=== PATIENT | male | born 1945 | race Caucasian/White ===

== ENCOUNTER 2019-06-11 11:08 | Outpatient (CLI) | payer MEDICARE, BC, SELFPAY ==
--- NOTE | 2019-06-11 06:00 | DI.RAD_ITS ---
EXAM: XR PAIN CLINIC LUMBAR SP 2V CLINICAL HISTORY: caudal epidural steroid injection, lumbar radiculopathy COMPARISON: No exams were available for comparison FINDINGS: Fluoro time: 63.2 sec, 39.3 mGy C-arm fluoroscopy was utilized by Dr. Aguila during reported epidural steroid injection. Hard copy shawn ws epidural injection at the level of approximately the 3rd to 4th sacral segment.
[2019-06-11 11:13] VITALS: BP 120/77; PULSE 63; RESP 18; TEMP 36.7; O2SAT 96
--- NOTE | 2019-06-11 12:34 | PDOC.PAIN ---
Pain Clinic Procedure Note Procedure Note Procedure Note: CAUDAL EPIDURAL STEROID WITH CATHETER INJECTION PROCEDURE NOTE COMMENTS: He has had this procedure in the past with good results SADA JONES has been referred to the [facility] for lumbar epidural steroid injection. Patient was greeted by the nurse who verified patients name and . Patient was then taken to the fluoroscopy suite. Patient was interviewed and the medical record reviewed. There were no medical, pharmacologic, radiographic, or other structural contraindications to attempting fluoroscopically guided lumbar epidural steroid injection. Risks and expected side effects as well as potential benefits of the procedure were reviewed and voiced concerns addressed. The patient consent form was signed and witnessed. Standard time-out procedure was performed. Patient was placed in the prone position on the fluoroscopy table and automated blood pressure cuff and pulse oximeter applied. The skin entry point for entering/approaching the epidural space at the sacral hiatus and marked. Following thorough chlorhexadine preparation of the skin and draping and 1% lidocaine infiltration of the skin entry point and subcutaneous tissues, a 17 gauge Touhy needle was placed under fluoroscopic guidance and with loss of resistance technique into the epidural space. Needle tip placement and depth were aided and confirmed by fluoroscopy. There was no paresthesia or return of blood or CSF through the needle. An Arrow cath was thread to the L5-S1 interspace and 1 cc's of Omnipaque 240 was injected with clear epidural spread confirmed with fluoroscopy. 80mg depomedrol was injected. There was not any unusual discomfort expressed. Vital signs were stable throughout the procedure and were as recorded in nursing records. Follow up plans and appointments were discussed.Post procedure instruction was given as documented in nursing records and having met discharge criteria and was discharged from the [facility]. COMMENTS: This procedure can be completed up to 3 times per 12 months if it is found to be helpful.
[2019-06-11] MEDS: Omnipaque 240 MG/ML 50 ML BTL IJ (12:46)
[2019-06-11 12:47] VITALS: BP 168/84; PULSE 63; RESP 20; O2SAT 97
[2019-06-11] MEDS: methylPREDNISolone ACETATE 80 MG/ML VIAL IM (12:47)
== END 2019-06-11 11:28 ==
PROVIDERS: PCP Internal Medicine; Visit Provider Preventive Medicine Occupational Medicine
DX: M54.17 Radiculopathy, lumbosacral region (principal)
CPT/HCPCS: 62323; 72100; J1040; Q9967

== ENCOUNTER 2020-01-06 09:12 | Outpatient (CLI) | payer MEDICARE, BC, SELFPAY ==
[2020-01-06 10:11] LABS: CREATININE 1.28 mg/dL (0.70-1.30); Estimated GFR 55.09 (mL/min/1.73m2)
== END 2020-01-06 09:32 ==
PROVIDERS: PCP Internal Medicine; Visit Provider Nurse Practitioner Family
DX: M96.1 Postlaminectomy syndrome, not elsewhere classified (principal); Z13.89 Encounter for screening for other disorder
CPT/HCPCS: 36415; 82565

== ENCOUNTER 2020-01-09 01:05 | Outpatient (CLI) | payer MEDICARE, BC, SELFPAY ==
--- NOTE | 2020-01-09 | DI.MRI_ITS ---
EXAM: MR LUMBAR SPINE WO/W CLINICAL HISTORY: SPINAL STENOSIS WITH NEUROGENIC CLAUDICATION, H/O. TECHNIQUE: Multiplanar multisequence MRI was performed. COMPARISON: MR MR LS SPINE W/WO CONTRAST from 05/15/2017 FINDINGS: MR examination lumbosacral spine was performed according to the usual protocol. Additional pre and p ost contrast T1 fat sat images were obtained. There are Lesley discal vertebral signal changes at L5-S1 consistent with disc degeneration. No other significant bony signal abnormality seen. Conus medullaris appears intact. There are mild to modera te hypertrophic changes seen involving the facet joints L4-5 L5-S1. There is metallic artifact posteriorly at the L 4 vertebral level which presumably represents a prior laminectomy mild deformity of the lamina noted at this level particularly on the left. There is no evidence of a central canal spinal stenosis at this time. No focal disc herniation seen , mild disc bulges noted at L 2 3 L3-4 and L4-5. Neural foramina appear well maintained except for m ild narrowing of neural foramina on the right at L4-5 and L5-S1. No enhancing lesion identified on postcontrast imaging. IMPRESSION: No evidence of spinal stenosis at this time. No disc herniation. Mild neural foraminal narrowing no melonie on the right at L4-5 and L5-S1. No gross interval change allowing for differences in technique c omparison with outside examination of 05/15/2017. DATA REPOSITORY:
[2020-01-09] MEDS: Normal Saline Flush 10 ML SYR IVP (14:18)
[2020-01-09] MEDS: Gadoterate meglumine 20 ML VIAL IVP (14:19)
== END 2020-01-09 01:25 ==
PROVIDERS: PCP Internal Medicine; Visit Provider Nurse Practitioner Family
DX: M48.07 Spinal stenosis, lumbosacral region (principal); M51.37 Other intervertebral disc degeneration, lumbosacral region
CPT/HCPCS: 72158

== ENCOUNTER 2020-01-30 10:13 | Outpatient (CLI) | payer MEDICARE, BC, SELFPAY ==
--- NOTE | 2020-01-30 06:00 | DI.RAD_ITS ---
EXAM: XR PAIN CLINIC LUMBAR SP 2V CLINICAL HISTORY: Dx: Lumbar Radiculopathy TECHNIQUE: 2D and realtime digital imaging was performed. Fluoroscopy was provided in the OR COMPARISON: No exams were available for comparison FINDINGS: C-arm fluoroscopy was utilized by Dr. Aguila during reported trans foraminal steroid injection. Hard c opy shows needle overlying the left L5-S1 neural foramen with injection this site. Fluoro time 23.4 seconds IMPRESSION: RADIATION DOSE DELIVERED: Total DLP
[2020-01-30 10:28] VITALS: BP 148/84; PULSE 65; RESP 18; TEMP 36.6; O2SAT 97
[2020-01-30 11:17] VITALS: BP 161/91; PULSE 67; RESP 14; O2SAT 98
[2020-01-30] MEDS: Dexamethasone Sod. Phos./Pres-Free 10 MG/ML VIAL IJ (11:17)
[2020-01-30] MEDS: Omnipaque 240 MG/ML 50 ML BTL IJ (11:17)
--- NOTE | 2020-02-13 10:41 | PDOC.PAIN_ITS ---
Pain Clinic Procedure Note Procedure Note Procedure Note: LUMBAR / SACRAL TRANSFORAMINAL INJECTION at the left L5 SADA JONES has been referred to the [facility] for a transforaminal nerve root block and steroid injection. COMMENTS: Pain in the left L5 distribution. Previously evaluated in the clinic. I did re-review his most recent lumbar spine MRI. DX: Lumbosacral radiculopathy Patient was interviewed and the medical record reviewed. There were no medical, pharmacologic, radiographic or other structural contraindications to attempting fluoroscopically guided transforaminal nerve root block and epidural steroid injection. Risks and expected side effects as well as potential benefit of the procedure were reviewed and voiced concerns addressed. The printed consent form was signed and witnessed. Standard time-out procedure was performed. Patient was placed in the prone position on the fluoroscopy table and automated blood pressure cuff and pulse oximeter applied. Fluoroscopy was utilized to identify the left L5 neural foramen between L5 and S1. A skin amalia was made for the needle insertion site. A Chlorhexadine prep was carried out, and sterile drapes were applied. Local anesthesia was achieved in the skin and subcutaneous tissues. A 22 gauge curved tip spinal needle was then inserted, advanced with fluoroscopic guidance into the neural foramen, confirmed on the lateral view. After negative aspiration, 2 ml of Omnipaque 240 was injected confirming position in A/P and lateral views. This showed a good spread of dye transforaminally into the epidural space. There was no vascular update with contrast injection under continuous fluoroscopy and digital substraction. 15 mg of Dexamethasone was injected, followed by 0.5 ml of 1% Xylocaine flush for the nerve root block, as well. There was no unusual discomfort expressed.The needle was withdrawn. The patient tolerated the procedure well. A Band-Aid was applied. Vital signs were stable throughout the procedure and were as recorded in nursing records. If given, dosages of intravenous drugs for anxiolysis and analgesia were documented in nursing records. Follow up plans and appointments were discussed. 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 COMMENTS:Great pain relief after the procedure. He can has this procedure up to 3 times every 12 months if it is found to be effective. CC: Monique Xiao
== END 2020-01-30 10:33 ==
PROVIDERS: PCP Internal Medicine; Visit Provider Preventive Medicine Occupational Medicine
DX: M54.17 Radiculopathy, lumbosacral region (principal)
CPT/HCPCS: 64483; 72100; Q9967

== ENCOUNTER 2020-02-19 09:43 | Outpatient (REF) | payer MEDICARE, BC, SELFPAY ==
[2020-02-22 05:48] LABS: 2-Hydroxy Ethyl Flurazepam Not Detected ng/mL (Cutoff: 10); 6-monoacetylmorphine Not Detected ng/mL (Cutoff: 25); Alpha-Hydroxy Midazolam Not Detected ng/mL (Cutoff: 10); Alpha-Hydroxy Triazolam Not Detected ng/mL (Cutoff: 10); Alpha-Hydroxyalprazolam Not Detected ng/mL (Cutoff: 10); Alpha-OH-alprazolam Glucuronid Not Detected ng/mL (Cutoff: 50); Alprazolam Not Detected ng/mL (Cutoff: 10); Amphetamines Negative ng/mL (Cutoff: 500); Barbiturates Negative ng/mL (Cutoff: 200); Buprenorphine Not Detected ng/mL (Cutoff: 5); Chlordiazepoxide Not Detected ng/mL (Cutoff: 10); Clobazam Not Detected ng/mL (Cutoff: 10); Clonazepam Not Detected ng/mL (Cutoff: 10); Cocaine Negative ng/mL (Cutoff: 150); Codeine Not Detected ng/mL (Cutoff: 25); Comment Normal; Creatinine, U 338.6 mg/dL; Diazepam Not Detected ng/mL (Cutoff: 10); Dihydrocodeine Not Detected ng/mL (Cutoff: 25); EDDP Not Detected ng/mL (Cutoff: 25); Fentanyl Not Detected ng/mL (Cutoff: 2); Flurazepam Not Detected ng/mL (Cutoff: 10); Hydrocodone Not Detected ng/mL (Cutoff: 25); Hydromorphone Not Detected ng/mL (Cutoff: 25); Hydromorphone-3-beta-glucuroni Not Detected ng/mL (Cutoff: 100); Lorazepam Not Detected ng/mL (Cutoff: 10); Lorazepam Glucuronide Not Detected ng/mL (Cutoff: 50); Meperidine Not Detected ng/mL (Cutoff: 25); Methadone Not Detected ng/mL (Cutoff: 25); Midazolam Not Detected ng/mL (Cutoff: 10); Morphine Not Detected ng/mL (Cutoff: 25); N-Desmethylclobazam Not Detected ng/mL (Cutoff: 200); N-desmethyltapentadol Not Detected ng/mL (Cutoff: 50); Naloxone Not Detected ng/mL (Cutoff: 25); Norfentanyl Not Detected ng/mL (Cutoff: 2); Norhydrocodone Not Detected ng/mL (Cutoff: 25); Normeperidine Not Detected ng/mL (Cutoff: 25); Noroxycodone Not Detected ng/mL (Cutoff: 25); Noroxymorphone Not Detected ng/mL (Cutoff: 25); O-desmethyltramadol Not Detected ng/mL (Cutoff: 25); Oxazepam Glucuronide Not Detected ng/mL (Cutoff: 50); Phencyclidine Negative ng/mL (Cutoff: 25); Prazepam Not Detected ng/mL (Cutoff: 10); Propoxyphene Not Detected ng/mL (Cutoff: 25); Tapentadol Not Detected ng/mL (Cutoff: 25); Temazepam Not Detected ng/mL (Cutoff: 10); Temazepam Glucuronide Not Detected ng/mL (Cutoff: 50); Tetrahydrocannabinol Negative ng/mL (Cutoff: 50); Tramadol Not Detected ng/mL (Cutoff: 25); Triazolam Not Detected ng/mL (Cutoff: 10); Zolpidem Phenyl-4-Carboxy acid Not Detected ng/mL (Cutoff: 10); pH 5.6
== END 2020-02-19 10:03 ==
LOC: LBN 09:43
PROVIDERS: PCP Internal Medicine; Visit Provider Nurse Practitioner Family
DX: M96.1 Postlaminectomy syndrome, not elsewhere classified (principal); Z79.899 Other long term (current) drug therapy
CPT/HCPCS: 80307; 80347; 80364

== ENCOUNTER 2021-01-04 01:38 | Outpatient (CLI) | payer MEDICARE, BC, SELFPAY ==
[2021-01-04] MEDS: Normal Saline Flush 10 ML SYR IVP (10:08)
[2021-01-04] MEDS: Gadoterate meglumine 20 ML VIAL IVP (10:09)
--- NOTE | 2021-01-04 11:00 | DI.MRI_ITS ---
Exam(s) MR LUMBAR SPINE WO/W EXAM: MR LUMBAR SPINE WO/W CLINICAL HISTORY: L4-5 DECOMPRESSION 10/2020,NEW RADICULAR PAIN AND WEAKNESS. TECHNIQUE: Multiplanar multisequence MRI of the Lumbar spine was performed. Both pre and post contra st infused sequences were performed. IV contrast was 20 mL Dotarem. COMPARISON: MR MR LS SPINE W/WO CONTRAST from 05/15/2017 MR MR LUMBAR SPINE WO/W from 01/09/2020 MR MR LUMBAR SPINE WO/W from 01/09/2020 There are no plain films available time this MRI interpretation. FINDINGS: Five lumbar vertebrae are presumed exam somewhat difficult to interpret other SPECT the proper level 9 number as there appears to be transitional anatomy here and there are no plain films available. Ex am will be labeled to correspond to the exam dictation of December 2019. Conus medullaris is at normal level. There is no evidence of conus mass nor subjacent clumping of in trathecal nerve roots to suggest arachnoiditis. The distal thecal sac appears unremarkable.There is no evidence of Tarlov intrasacral cysts nor other significant findings within the sacral canal. PARASPINAL SOFT TISSUES: No significant asymmetry of the psoas muscles nor paraspinal abscess evident . No evidence of abnormal epidural fluid collection. There is enhancement along the surgical occult tract posteriorly but no abnormal fluid collection. Also enhancement symmetrically associated with the posterior musculature along the surgical route. There is some enhancement at the level of adjace nt Schmorl's nodes in the inferior endplate of L3 and superior endplate of L4. Bones:There are no fractures nor ominous osseous lesions in the lumbar vertebral bodies and visualize d sacrum. Increase intraosseous signal and enhancement at the adjacent Schmorl's node invagination i s sys inferior endplate of L3 L2 and L3 and superior endplate of L4. However, there is no prominent surrounding bone edema. With respect to the individual levels... T12-L1: Unremarkable L1-2: Small benign intraosseous hemangioma noted in the posterior aspect L1, unchanged. There is mil d annular bulging, more so on the left than right but no prominent disc herniation. Central canal di mensions are lower normal. No significant foraminal stenosis evident at this level. Mild facet dege nerative changes. L2-3: Chronic decreased disc height. There is annular bulging which is more prominent on the right s panfilo and extends into the floor of the exiting right neural foramen. There is, however, only minimal foraminal stenosis. There is no significant annular protrusion into the exiting left neural foramen. Central canal dimensions are lower normal. No prominent facet arthropathy. L3-4: This level exhibits further disc height loss when compared to the CT scan of December 2019. Also Renan morl's node invagination is a both sides of this disc space are again noted.There is broad annular bu lging at this level noted but central canal dimensions are lower normal. The annular bulging extends into the exiting neural foramina bilaterally at this level and there is moderate bilateral foraminal stenosis at this level evident. This has increased when compared to the December 2019 study and is mostl y related to increasing height loss of the disc as well as degenerative changes in the facet joints. L4-5: Mild decreased disc height and signal. There is broad annular bulging without a dominant disc protrusion. Broad annular bulging extends into the exiting neural foramina but there is only foramin al stenosis on the right side at this level which is mostly related to degenerative change in the rig ht facet joint. No obvious foraminal stenosis on the opposite-left side evident at this level. L5-S1: If level exhibits chronic disc space narrowing is unchanged from December 2019. There is broad mayte lar bulging at this level. Central canal dimensions are lower normal. There is narrowing of the exi ting right neural foramen, more so than on the left side where there is only mild foraminal stenosis. The difference there is related to the annulus, disc height loss, and degenerative change in the ri ght facet joint. EPIDURAL ABSCESS: There is no evidence of epidural nor paraspinal abscess. Soft tissues: paraspinal soft tissues appear unremarkable. IMPRESSION: 1. Since the prior see MRI scan of December 2011 there has been interval partial laminectomy surgery. Th ere are mild multilevel findings as described individually above but there is no evidence of tight sp inal canal stenosis. There is some asymmetric foraminal stenosis as described above. 2. There is enhancement in the soft tissues along these surgical tract but no evidence of paraspinal or epidural abscess. 3. There is some enhancement seen within Schmorl's node invagination is at the mid lumbar level. How ever, there does not appear to be evidence to suggest osteomyelitis DATA REPOSITORY:
== END 2021-01-04 01:58 ==
PROVIDERS: PCP Internal Medicine; Visit Provider Internal Medicine
DX: M54.16 Radiculopathy, lumbar region (principal); D18.09 Hemangioma of other sites; Z98.890 Other specified postprocedural states
CPT/HCPCS: 72158

== ENCOUNTER 2021-10-04 10:09 | Outpatient (CLI) | payer MEDICARE, BC, SELFPAY ==
--- NOTE | 2021-10-04 09:36 | DI.RAD_ITS ---
Exam(s) XR HIP PELVIS ADULT BL EXAM: XR HIP PELVIS ADULT BL CLINICAL HISTORY: hip pain. TECHNIQUE: 2D digital imaging was performed. COMPARISON: No exams were available for comparison FINDINGS: No pelvic fractures or osseous lesions evident. Vascular calcification in the right femoral artery i s noted. Wire-like densities are projected over both sides of the symphysis pubis. I suspect this i s from prior bladder suspension surgery. There are only mild degenerative changes in the hips. SI j oints appear unremarkable. IMPRESSION: DATA REPOSITORY: RADIATION DOSE DELIVERED:
== END 2021-10-04 10:10 | disposition home or self-care (01) ==
LOC: DIORS 10:09
PROVIDERS: PCP Internal Medicine; Referring Provider Internal Medicine; Visit Provider Student in an Organized Health Care Education/Training Program
DX: M16.12 Unilateral primary osteoarthritis, left hip (principal); M16.11 Unilateral primary osteoarthritis, right hip
CPT/HCPCS: 73521; 99214

== ENCOUNTER 2021-10-28 03:14 | Outpatient (CLI) | payer MEDICARE, BC, SELFPAY ==
--- NOTE | 2021-10-28 08:00 | DI.RAD_ITS ---
Exam(s) RF JOINT INJECTION FLUORO GUID EXAM: RF JOINT INJECTION FLUORO GUID CLINICAL HISTORY: R HIP INJ UNDER FLUORO,rt hip pain,m25.551,fluoro assisted injection. TECHNIQUE: Fluoroscopy was provided for the referring physician for guidance with performing injecti on procedure. COMPARISON: No exams were available for comparison FINDINGS: Single hard copy image shows a needle projecting at the margin of the right femoral neck and small am ount of contrast within the right hip joint please see procedure note for details. Fluoro time: 6 seconds RADIATION DOSE DELIVERED: ghulam Johnson=1.04 mGy
--- NOTE | 2021-10-28 08:00 | DI.RAD_ITS ---
Exam(s) RF JOINT INJECTION FLUORO GUID EXAM: RF JOINT INJECTION FLUORO GUID CLINICAL HISTORY: lt hip pain, m25.552, fluoro assisted injection. TECHNIQUE: Fluoroscopy was provided for the referring physician for guidance with performing injecti on procedure. COMPARISON: No exams were available for comparison FINDINGS: A single hard copy image shows a small amount of chronic contrast injected into the left hip joint. Please see procedure note for details. Fluoro time: 6.04 seconds RADIATION DOSE DELIVERED: ghulam Johnson=0.76 mGy
--- NOTE | 2021-10-28 14:33 | W.PROCNOTE ---
Procedure Note Date of procedure: 10/28/21 Procedure: Bilateral Hip Injection with Fluoroscopic Guidance Surgeon/Proceduralist/Physician: Ludin Law Procedure Diagnosis: Bilateral Hip Pain Procedure Indications: Rashawn has had persistent pain of the BILATERAL hip and groin and low back. Noninvasive measures have been tried. To serve as both diagnostic and therapeutic, an injection under fluoroscopy was recommended. I had discussed the risks of the procedure and the patient elected to proceed. Procedure Description: Rashawn was greeted in the flouroscopy room. The consent was reviewed with the patient and signed. The patient was then placed in the supine position on the fluoroscopy table. The RIGHT hip was then prepped with Chloraprep. The anterolateral injection starting point was identiifed by bony landmarks and fluoroscopy. The skin and soft tissue in the tract of the injection was anesthetized with 1% Lidocaine. A spinal needle was then inserted deep into the hip joint at the level of the lateral femoral neck under fluoroscopic guidance. A small amount of Omnipaque solution was injected to confirm intraarticular placement. Once confirmed, the hip was injected with 5cc of 0.5% Bupivicaine and 80mg of Depo-Medrol. A bandaid was placed on the injection site. The LEFT hip was then prepped with Chloraprep. The anterolateral injection starting point was identiifed by bony landmarks and fluoroscopy. The skin and soft tissue in the tract of the injection was anesthetized with 1% Lidocaine. A spinal needle was then inserted deep into the hip joint at the level of the lateral femoral neck under fluoroscopic guidance. A small amount of Omnipaque solution was injected to confirm intraarticular placement. Once confirmed, the hip was injected with 5cc of 0.5% Bupivicaine and 80mg of Depo-Medrol. A bandaid was placed on the injection site. The patient tolerated the procedure well.
[2021-10-28] MEDS: Omnipaque 300 MG/ML 10 ML BTL IJ ×2 (14:58→15:02)
[2021-10-28] MEDS: methylPREDNISolone ACETATE 80 MG/ML VIAL IM ×2 (14:59→15:02)
[2021-10-28] MEDS: Bupivacaine 0.5% Pres-Free 10 ML VIAL 5 ML IJ (15:00)
== END 2021-10-28 03:34 ==
PROVIDERS: PCP Internal Medicine; Visit Provider Student in an Organized Health Care Education/Training Program
DX: M25.552 Pain in left hip (principal); M25.551 Pain in right hip
CPT/HCPCS: 20610; 77002; J1040

== ENCOUNTER 2022-05-04 12:02 | Outpatient (CLI) | payer MEDICARE, BC, SELFPAY ==
[2022-05-04 12:17] VITALS: BP 133/85; PULSE 61; RESP 22; TEMP 36.7; O2SAT 97
[2022-05-04 13:09] VITALS: PULSE 78; RESP 18; O2SAT 98
[2022-05-04] MEDS: methylPREDNISolone ACETATE 40 MG/ML VIAL IJ (13:25)
[2022-05-04] MEDS: Lidocaine 2% Multi-Dose 20 ML VIAL IJ (13:25)
--- NOTE | 2022-05-19 13:41 | PDOC.PAIN ---
Pain Clinic Procedure Note Procedure Note Procedure Note: ULTRASOUND GUIDED BILATERAL ILIOPSOAS TENDON NEEDLING Pre-Procedural Evaluation: Rashawn Fairbanks has been referred to the [facility] for an Ultrasound Guided bilateral bilateral iliopsoas needling injection for a chief complaint of bilateral lateral hip pain. Comments: He was previously seen in the office. Pre-procedure Pain Score: 8/10 Dx: Bilateral Iliopsoas tendinopathy Patient was interviewed and the medical record reviewed. There were no medical, pharmacologic, radiographic, or other structural contraindications to preforming an ultrasound guided injection. Risks and expected side effects as well as potential benefits of the procedure were reviewed. The patient consent form was signed and witnessed. Standard time-out procedure was performed. The use of direct ultrasound visualization of the needle (rather than a non-guided injection) was required to increase patient safety by excluding inadvertent intramuscular, intratendinous, or intraneural needle placement and minimizing bleeding by avoiding osteochondral or vascular injury from the needle. Additionally, the increased accuracy of placement may increase clinical effectiveness and will allow higher diagnostic specificity when evaluating effectiveness of this injection. Procedure Description: The patient was placed in the supine position and automated blood pressure cuff and pulse oximeter applied for monitoring during the procedure and recorded in the medical record. Pre-injection ultrasound scanning of the area of interest was performed using a linear transducer, identifying relevant anatomy, landmarks, and neurovascular structures allowing for optimal needle path. The site was then prepared in the usual sterile fashion, using thorough Chlorhexadine preparation of the skin and sterile draping. The same ultrasound transducer was then passed into the sterile field using sterile probe cover and sterile ultrasound gel. The injection target was again visualized. Skin and subcutaneous tissues were anesthetized with NUMBERS mL of 1% Lidocaine. A 18G Pajunk 3.5 ultrasound needle inch needle was placed under live ultrasound guidance, using an in-plane to the target area. After visualization of the needle tip at the target area, I injected 5 cc of 2% Lidocaine after negative aspiration for blood. I then punctured the iliopsoas tendon 20 times with the needle under direction ultrasound visualization. Ultrasound images were captured and stored for documentation purposes. This procedure was completed on both sides. Post-procedure Pain Score:4/10 Vital signs were stable throughout the procedure and were as recorded in the docflowsheet by the nursing staff. Follow up plans and appointments were discussed with the patient.Post procedure instruction was given as documented in nursing documentation and having met discharge criteria, they were discharged from the [facility]. COMMENTS: He was instructed to walk or be weight bearing as little as possible for the nex 7-10 days and then start stretching as instructed. Kailash Aguila DO, MPH [facility]-Pain Management [facility] for [facility]
== END 2022-05-04 12:03 | disposition home or self-care (01) ==
LOC: PC 12:02
PROVIDERS: Visit Provider Preventive Medicine Occupational Medicine
DX: M67.853 Other specified disorders of tendon, right hip (principal); M67.854 Other specified disorders of tendon, left hip
CPT/HCPCS: 20611; J1030; J3490

== ENCOUNTER 2022-11-03 11:36 | Outpatient (CLI) | payer MEDICARE, BC, SELFPAY ==
--- NOTE | 2022-11-03 06:00 | DI.RAD_ITS ---
Exam(s) XR PAIN CLINIC LUMBAR SP 2V EXAM: XR PAIN CLINIC LUMBAR SP 2V CLINICAL HISTORY: Dx: Lumbar Spondylosis. TECHNIQUE: Fluoroscopy was provided for the referring physician for guidance with performing pain cl inic injection procedure. COMPARISON: No exams were available for comparison FINDINGS: Please see procedure note for details. Fluoro time: 52.2 seconds RADIATION DOSE DELIVERED: ghulam Johnson=17.69 mGy
[2022-11-03 11:48] VITALS: BP 131/78; PULSE 71; RESP 20; TEMP 36.8; O2SAT 98
[2022-11-03] MEDS: Bupivacaine 0.5% Pres-Free 10 ML VIAL IJ (12:39)
[2022-11-03 12:40] VITALS: BP 155/82; PULSE 89; RESP 15; O2SAT 99
[2022-11-03] MEDS: Omnipaque 240 MG/ML 50 ML BTL IJ (12:40)
--- NOTE | 2022-11-09 13:15 | PDOC.PAIN_ITS ---
Date of service: 11/03/22 Time of Service: 12:25 Pain Clinic Procedure Note Procedure Note Procedure Note: Lumbar/Sacral Medial Branch Blocks Rashawn Fairbanks has been referred to the [facility] for lumbar/sacral medial branch blocks. COMMENTS: He was previously evaluated in the office. Dx: Lumbosacral spondylosis without myelopathy pre-procedure pain VAS was 9/10 Patient was interviewed and the medical record reviewed. There were no medical, pharmacologic, radiographic or other structural contraindications to attempting fluoroscopically guided local anesthetic lumbar/sacral medial branch blocks. Risks and expected side effects as well as potential benefit of the procedure were reviewed and voiced concerns addressed. The printed consent form was signed and witnessed. Standard time-out procedure was performed. Patient was placed in the prone position on the fluoroscopy table and automated blood pressure cuff and pulse oximeter applied. The skin entry points for approaching the anatomic target points of the segmental medial branches of bilateral L3-L5 were identified with anfluoroscopy and marked. Following thorough Chlorhexadine preparation of the skin and draping and 1% lidocaine infiltration of the skin entry points and subcutaneous tissues, a 22 gauge spinal needle was placed under fluoroscopic guidance down on to the target point for each respective segmental medial branch.Position was confirmed in A/P, oblique and lateral views with 0.25ml of omnipaque 240. Coult be this method .5ml 0.5% Bupivacaine was injected or 1% Lidocaine. Vital signs were stable throughout the procedure and were as recorded in the docflowsheet by the nursing staff. Follow up plans and appointments were discussed and was instructed to keep careful note of how the usual pain was modified by these injections. Specifically was asked to keep a pain diary for the next 24 hours using a numeric pain scale of 0-10 and report these results at the follow-up visit. Post procedure instruction was given as documented in the nursing documentation and having met discharge criteria. Patient was discharged from the [facility] Management Center. Based on the medial branches blocked today, if the patient has adequate relief and we are able to proceed to radiofrequency ablation, the treatment should result in the denervation of the bilateral L4-L5 and L5-S1 FACET JOINTS. We would expect to denervate a total of 4 facets during the radiofrequency ablation. COMMENTS: Post-procedure pain VAS was 2/10. Kailash Aguila DO, MPH [facility]-Pain Management [facility]-Center for [facility] CC: Varun Vaz
== END 2022-11-03 11:37 | disposition home or self-care (01) ==
LOC: PC 11:37
PROVIDERS: PCP Neuromusculoskeletal Medicine & OMM; Visit Provider Preventive Medicine Occupational Medicine
DX: M47.817 Spondylosis without myelopathy or radiculopathy, lumbosacral region (principal); M54.50 Low back pain, unspecified
CPT/HCPCS: 64493; 64494; 72100; Q9967

== ENCOUNTER 2023-02-14 03:24 | Outpatient (CLI) | payer MEDICARE, BC, SELFPAY ==
[2023-02-14 09:11] LABS: ALT 34 U/L (16-63); AST 20 U/L (15-37); Albumin 3.4 g/dL (3.4-5.0); Alkaline Phosphatase 52 U/L (46-116); Anion Gap 9.4 mmol/L (3-11); BUN 20 mg/dL (7-18); Bilirubin, Total 0.6 mg/dL (0.2-1.0); CO2 24.6 mmol/L (21.0-32.0); CREATININE 1.2 mg/dL (0.70-1.30); Calcium 8.7 mg/dL (8.5-10.1); Chloride 109 mmol/L (98-107); Estimated GFR 62.67 (mL/min/1.73m2); Glucose 120 mg/dL (74-106); Potassium 3.9 mmol/L (3.5-5.1); Sodium 143 mmol/L (136-145); Total Protein 6.9 g/dL (6.4-8.2)
[2023-02-15 16:22] LABS: PSA, Ultrasensitive 0.11 ng/mL (<= 6.5)
[2023-02-18 14:55] LABS: Testosterone, Total <7.0 ng/dL (240-950)
== END 2023-02-14 03:25 | disposition home or self-care (01) ==
LOC: LBO 03:24
PROVIDERS: PCP Neuromusculoskeletal Medicine & OMM; Visit Provider Internal Medicine
DX: C61 Malignant neoplasm of prostate (principal)
CPT/HCPCS: 36415; 80053; 84153; 84403

== ENCOUNTER 2024-01-31 14:00 | Outpatient (CLI) | payer MEDICARE, BC, SELFPAY ==
[2024-01-31 14:10] VITALS: BP 158/85; PULSE 77; RESP 20; TEMP 36.7; O2SAT 96
[2024-01-31 14:52] VITALS: PULSE 82; RESP 16; O2SAT 95
[2024-01-31 15:00] VITALS: PULSE 78; RESP 13; O2SAT 97
[2024-01-31] MEDS: methylPREDNISolone ACETATE 80 MG/ML VIAL IJ (15:00)
[2024-01-31] MEDS: Omnipaque 240 MG/ML 50 ML BTL IJ (15:01)
[2024-01-31 15:02] VITALS: BP 149/90; PULSE 75; PULSE 76; RESP 16; O2SAT 96
[2024-01-31] MEDS: Epidural Tray 1 EACH MC (15:02)
--- NOTE | 2024-01-31 15:03 | PDOC.PAIN_ITS ---
Date of service: 01/31/24 Time of Service: 15:03 Pain Managment Procedure Note Procedure Note Procedure Note: PROCEDURE NOTE LUMBAR EPIDURAL STEROID INJECTION Date of Service: January 31, 2024 Patient:Rashawn Rose? Provider: Kailash Aguila DO, MPH Rashawn Fairbanks has been referred to the [facility] for a lumbar epidural steroid injection. Pre-operative diagnosis: Lumbosacral Radiculopathy Post-operative diagnosis: Same Pre-Procedure Pain: VAS= 9-10/10 when standing Comments: He was sent in for this procedure by his surgeon. He has lumbar spinal stenosis with claudication and we are trying to avoid an additional lumbar spine surgery. Rashawn was interviewed and the medical record was reviewed.? There were no medical, pharmacologic, radiographic or other structural contraindications to attempting fluoroscopically guided Lumbar epidural steroid injection.? Risks, potential side effects, indications, and potential benefits of the procedure were reviewed with Rashawn.? Questions and concerns were addressed.? After it was clear that Rashawn was fully informed about the procedure, the printed consent form was signed by the patient and myself.? Rashawn was placed in the prone position on the fluoroscopy table and automated blood pressure cuff and pulse oximeter applied. The skin entry point for entering/approaching the epidural space for the lumbar epidural steroid injection was marked. Following thorough chlorhexadine preparation of the skin and draping and 1% lidocaine infiltration of the skin entry point and subcutaneous tissues, an 18 gauge Touhy needle was placed and advanced under fluoroscopic guidance and with loss of resistance technique into the L2-L3 epidural space. Needle tip placement and depth were aided and confirmed by fluoroscopy. There was no paresthesia or return of blood or CSF through the needle. 1 mls of Omnipaque 240 was injected with clear epidural spread confirmed with fluoroscopy. 80 mg of Depo-Medrol was? injected. This was followed by 1 ml of preservative-free normal saline to flush the steroid out of the needle. There was no unusual discomfort expressed by Rashawn. The needle was withdrawn without difficulty. (49 mls of Omnipaque was wasted) Rashawn was observed and was without hemodynamic, neurologic, or allergic reactions.? Fluoroscopic images were digitally archived. Rashawn's vital signs were stable throughout the procedure and were as recorded in nursing records. Follow up plans and appointments were discussed with Rashawn. Post procedure instruction was given as documented in nursing records and having met discharge criteria Rashawn was discharged from the [facility]. COMMENTS: No apparent complications. Post-procedure pain: VAS= 3/10. Rashawn to contact [facility] as needed. If at least 50% improvement in pain and/or function for at least 3 months is achieved, this procedure can be repeated. I personally performed this entire procedure. KAILASH AGUILA DO, MPH ABPMR-subspecialty board certification in Pain Medicine [facility]
--- NOTE | 2024-01-31 15:10 | DI.RAD_ITS ---
Exam(s) XR PAIN CLINIC LUMBAR SP 2V EXAM: XR PAIN CLINIC LUMBAR SP 2V CLINICAL HISTORY: Dx: Lumbar Radiculopathy TECHNIQUE: 2D and realtime digital imaging was performed. CONTRAST MATERIAL: Refer to procedure report. COMPARISON: No exams were available for comparison FINDINGS: Fluoroscopy was provided for Dr. Aguila during the performance of a lumbar epidural steroid injection. Please refer to the procedure report for complete details. Ka,r=9.78 mGy IMPRESSION: RADIATION DOSE DELIVERED: 0.0 0.0 0
== END 2024-01-31 14:01 | disposition home or self-care (01) ==
LOC: PC 14:01
PROVIDERS: PCP Neuromusculoskeletal Medicine & OMM; Visit Provider Preventive Medicine Occupational Medicine
DX: M54.50 Low back pain, unspecified (principal); M54.17 Radiculopathy, lumbosacral region
CPT/HCPCS: 62323; 72100; J1010; Q9967

== ENCOUNTER 2024-03-21 17:08 | Outpatient (CLI) | payer MEDICARE, BC, SELFPAY ==
--- NOTE | 2024-03-21 14:30 | DI.RAD_ITS ---
Exam(s) XR PAIN CLINIC LUMBAR SP 2V EXAM: XR PAIN CLINIC LUMBAR SP 2V CLINICAL HISTORY: Dx: Cluneal neuropathy TECHNIQUE: 2D and realtime digital imaging was performed. Radiologist not present. CONTRAST MATERIAL: None. COMPARISON: No exams were available for comparison FINDINGS: Fluoroscopy was provided for pain management therapy. Please refer to procedure report or details. Radiation Exposure Index: Ka,r=32.52 mGy IMPRESSION: As above. RADIATION DOSE DELIVERED:
[2024-03-21 14:49] VITALS: PULSE 63; RESP 24; O2SAT 97
[2024-03-21 14:50] VITALS: PULSE 72; RESP 16; O2SAT 97
[2024-03-21 15:00] VITALS: PULSE 69; RESP 17; O2SAT 96
[2024-03-21 15:10] VITALS: PULSE 67; RESP 22; O2SAT 96
[2024-03-21 15:13] VITALS: BP 150/102; PULSE 74
--- NOTE | 2024-03-21 15:13 | PDOC.PAIN ---
Date of service: 03/21/24 Time of Service: 15:13 Pain Managment Procedure Note Procedure Note Procedure Note: PROCEDURE NOTE Bilateral Cluneal Nerve Blocks Date of Service: March 21, 2024 Patient: Rashawn Fairbanks Provider: Kailash Aguila DO, MPH Rashawn Fairbanks has been referred to the [facility] for Cluneal Nerve blocks. Pre-operative diagnosis: Cluneal Neuropathy Post-operative diagnosis: Same Pre-procedure pain: VAS= 8-9/10 when walking COMMENTS: I evaluated him in the office today. Jay was interviewed and the medical records were reviewed. There were no medical, pharmacologic, radiographic or other structural contraindications to attempting fluoroscopically guided local anesthetic bilateral Cluneal nerve blocks. Risks and potential side effects were discussed. I also discussed the potential benefit(s) of the procedure with Rashawn, and voiced concerns were addressed. After Rashawn was completely informed about the procedure, the printed consent form was signed. A standard time-out procedure was performed. Rashawn was placed in the prone position on the fluoroscopy table. Automated blood pressure cuff and pulse oximeter were applied. The skin entry points for approaching the anatomic target points of the iliac crest (bilateral Superior and Medial Cluneal Nerves) were identified with fluoroscopy and marked. The skin at the target site area was thoroughly prepared with Chlorhexadine. The skin was then draped. Next, a 25 gauge 3.5 spinal needle was placed under fluoroscopic guidance down on to the target point (iliac crest) for each respective segmental sensory nerve. Position was confirmed in A/P. Aspiration revealed no blood or clear fluid. Next, 0.25ml of omnipaque 240 was injected at each segmental nerve. No contrast following a vascular or neural pattern was visualized under continuous fluoroscopy. Next, 0.5 ml of preservative-free 0.5% bupivicaine was injected at each level. There was no unusual discomfort expressed by Rasahwn. The needles were withdrawn without difficulty. (47 mls of Omnipaque was wasted) Rashawn was observed and was without hemodynamic, neurologic, or allergic reactions.? Fluoroscopic images were digitally archived. Provacative testing using the Walking- Left side Right Side Directly before the block VAS (0-10) = 8-9/10 VAS (0-10) = 8-9/10 Five minutes after the block VAS (0-10) = 0/10 VAS (0-10) = 0/10 Percentage relief obtained with this diagnostic block 100% 100% Any improved physical functioning directly after the blocks? Able to walk without pain Follow up plans and appointments were discussed with Rashawn. Rashawn was instructed to keep careful note of how the usual pain was modified by these injections. Specifically, to keep a pain diary for the next 4 hours using a numeric pain scale of 0-10 and report these results. Post procedure instruction was given as documented in the nursing documentation and having met discharge criteria, the patient was [facility] from the [facility]. Based on the nerves blocked today, if they patient has adequate relief and we are able to proceed to radiofrequency ablation, the treatment should result in the denervation of the bilateral Superior and Medial Cluneal nerves. We would expect to denervate a total of 4 peripheral nerves (bilateral Superior and Medial Cluneal nerves) during the radiofrequency ablation. COMMENTS: No apparent complications. Post-procedure pain: VAS= 0/10. Rashawn will call back with 0-4 hour post-procedure pain scores. I personally performed the entire procedure. KAILASH AGUILA DO, MPH ABPM&R-subspecialty board certification in Pain Medicine [facility] [facility]
[2024-03-21] MEDS: Bupivacaine 0.5% Pres-Free 10 ML VIAL IJ (15:18)
[2024-03-21] MEDS: Omnipaque 240 MG/ML 50 ML BTL IJ (15:18)
[2024-03-21] MEDS: Nerve Block Tray 1 EACH MC (15:19)
== END 2024-03-21 17:09 | disposition home or self-care (01) ==
LOC: PC 17:08
PROVIDERS: PCP Neuromusculoskeletal Medicine & OMM; Visit Provider Preventive Medicine Occupational Medicine
DX: M54.50 Low back pain, unspecified (principal); G58.8 Other specified mononeuropathies
CPT/HCPCS: 64450; 72100; J0665; Q9967

== ENCOUNTER 2024-11-12 00:24 | Outpatient (CLI) | payer MEDICARE, BC, SELFPAY ==
--- NOTE | 2024-11-12 07:00 | DI.RAD_ITS ---
Exam(s) XR FOOT LT COMPLETE EXAM: XR FOOT LT COMPLETE CLINICAL HISTORY: Left foot pain,M79.672. TECHNIQUE: 2D digital imaging was performed of the left foot. Three images were obtained. AP, obli que and lateral views were obtained. COMPARISON: No exams were available for comparison FINDINGS: BONES: No acute fracture is present. No bony destructive lesion is seen. There is enthesophyte at the posterior calcaneus. There is a small plantar calcaneal spur. JOINTS: No dislocation present. There is a mild hallux valgus deformity. Mild degenerative changes a re seen the foot. SOFT TISSUE: Vascular calcifications are present. IMPRESSION: Mild degenerative changes of the foot and a mild hallux valgus deformity. DATA REPOSITORY: RADIATION DOSE DELIVERED:
--- NOTE | 2024-11-12 07:00 | DI.RAD_ITS ---
Exam(s) XR FOOT RT COMPLETE EXAM: XR FOOT RT COMPLETE CLINICAL HISTORY: Right foot pain,M79.672. TECHNIQUE: 2D digital imaging was performed of the right foot. Three images were obtained. AP, obl ique and lateral views were obtained. COMPARISON: There are no priors for comparison. FINDINGS: BONES: No acute fracture is present. No bony destructive lesion is seen. There is a small enthesophyt e at the posterior calcaneus. JOINTS: No dislocation present. There is a hallux valgus deformity. There are mild degenerative mueller ges seen in the foot particular at the tarsometatarsal joints in the 1st metatarsophalangeal joint. SOFT TISSUE: Normal. IMPRESSION: Degenerative changes and mild hallux valgus deformity. DATA REPOSITORY: RADIATION DOSE DELIVERED:
== END 2024-11-12 00:44 ==
LOC: DI 00:25
PROVIDERS: PCP Neuromusculoskeletal Medicine & OMM; Visit Provider Podiatrist
DX: M20.12 Hallux valgus (acquired), left foot (principal); M20.11 Hallux valgus (acquired), right foot; M79.672 Pain in left foot; G62.9 Polyneuropathy, unspecified; L60.0 Ingrowing nail; M79.671 Pain in right foot
CPT/HCPCS: 11750; 99214; 73630

== ENCOUNTER → 2024-12-19 14:58 | Outpatient (BNVA) | payer MEDICARE, BC, SELFPAY | PROVIDERS: PCP Neuromusculoskeletal Medicine & OMM; Referring Provider Neuromusculoskeletal Medicine & OMM; Visit Provider Podiatrist | DX: L60.0 Ingrowing nail (principal); M79.672 Pain in left foot; M79.671 Pain in right foot; G62.9 Polyneuropathy, unspecified | CPT/HCPCS: 11750 ==